=== PATIENT | female | born 1985 | race Asian ===

== ENCOUNTER 2022-08-26 13:34 | Emergency (ER) | payer OTHER ==
[~2022-08-26] VITALS: Ht 157.5 cm; Wt 84.1 kg
[2022-08-26 13:50] VITALS: BP 114/95
[2022-08-26] MEDS ORDERED: ATOR20TA86 PO (13:54)
[2022-08-26 14:04] LABS: COVID AG,FIA SOURCE NASAL SWAB
[2022-08-26 14:27] LABS: INFLUENZA TYPE A NEGATIVE FOR TYPE A (NEGATIVE); INFLUENZA TYPE B NEGATIVE FOR TYPE B (NEGATIVE)
[2022-08-26] MEDS ORDERED: GUAIFDM PO (14:37)
[2022-08-26] MEDS ORDERED: ACET-66 PO (14:37)
== END 2022-08-26 14:47 | disposition home or self-care (01) ==
LOC: EMS 13:39
DX: J06.9 Acute upper respiratory infection, unspecified (principal); Z20.822 Contact with and (suspected) exposure to COVID-19; E78.00 Pure hypercholesterolemia, unspecified; F10.20 Alcohol dependence, uncomplicated; R09.81 Nasal congestion
CPT/HCPCS: 87804; 99283